=== PATIENT | female | born 2000 | race Two or more races ===

== ENCOUNTER 2024-11-27 02:03 | Inpatient (IN) | payer MEDICAID, SELFPAY ==
[2024-11-27] VITALS (13 sets, daily range): BP systolic 105–127; BP diastolic 75–88; PULSE 71–136; RESP 14–20; TEMP 36.1–37; O2SAT 96–100; BMI 17.5; BMI 17.4
--- NOTE | 2024-11-27 02:11 | PD.EDMEDCL ---
ED Medical Clearance RME/HPI General Chief complaint: Medical Clearance Stated complaint: MEDICAL CLEARANCE/HIGH GLUCOSE Time Seen by Provider: 11/27/24 02:28 Arrival date/time: 11/27/24 02:03 RME / HPI RME / HPI Narrative: See [facility] Related Information Allergies Allergy/AdvReac Type Severity Reaction Status Date / Time No Known Allergies Allergy Verified 02/27/20 11:18 Review of Systems Review of Systems Systems Reviewed: All systems reviewed, normal except as documented Past Medical History Past Medical History RESPIRATORY: Positive Asthma GASTROINTESTINAL: Positive Obstructive Bowel ENDOCRINE: Positive Diabetes Mellitus Type 1 Social History SMOKING STATUS: Current every day smoker ED Exam Narrative Physical exam: Refer to [facility] Course Course Course Narrative: See [facility] Quality Measures none Orders Category Date Time Status Bedside COVID-19 Antigen Test NOW Care 11/27/24 02:29 Active Bedside Influenza A&B Antigen Test NOW Care 11/27/24 02:29 Completed COVID-19 Screening Questionnaire NOW Care 11/27/24 04:26 Active Decision to Admit X1 Care 11/27/24 04:26 Completed EKG (ED ONLY) *Do not use* NOW Care 11/27/24 02:29 Completed Saline [Insert IV] NOW Care 11/27/24 02:29 Active Straight [In and Out Catheter] X1 Care 11/27/24 02:29 Active EKG (ED Only) Stat Exams 11/27/24 02:29 Draft ABG [Arterial Blood Gas] Stat Lab 11/27/24 03:03 Completed Alcohol, Blood Medical Stat Lab 11/27/24 02:35 Completed Amylase Stat Lab 11/27/24 02:35 Completed Beta Hydroxybutyrate Stat Lab 11/27/24 02:35 Completed Bilirubin,Direct Stat Lab 11/27/24 02:35 Completed CBC Stat Lab 11/27/24 02:35 Completed CMP [Comprehensive Metabolic Panel] Stat Lab 11/27/24 02:35 Completed Drug Screen,Urine Stat Lab 11/27/24 03:00 Completed Free T4 (Free Thyroxine) Stat Lab 11/27/24 02:35 Completed HCG,Qualitative Serum Stat Lab 11/27/24 02:35 Completed Hemoglobin A1C [Glycohemoglobin w (eAG)] Stat Lab 11/27/24 02:35 Completed Lactate (Lactic Acid) Stat Lab 11/27/24 02:35 Results Magnesium Stat Lab 11/27/24 02:35 Completed Procalcitonin Stat Lab 11/27/24 02:35 Completed TSH [Thyroid Stimulating Hormone] Stat Lab 11/27/24 02:35 Completed Troponin I Stat Lab 11/27/24 02:35 Completed UA, C/S IF [Urinalysis, C/S if Indicated] Stat Lab 11/27/24 03:00 Completed Urine Culture Stat Lab 11/27/24 03:00 Received Insulin Reg 100 Units/100 ml [Myxredlin] Med 11/27/24 03:48 Discontinued 100 unit in 100 ml IV 0.1 unit/kg/hr Insulin Regular Med 11/27/24 02:29 Discontinued 5 unit IV X1 ONE Ondansetron Inj [Zofran Inj] Med 11/27/24 02:29 Discontinued 4 mg IVP X1 ONE Sodium Chloride 0.9% 1000 ml [Ns] 1,000 ml Med 11/27/24 02:29 Discontinued IV 999 mls/hr Sodium Chloride 0.9% 1000 ml [Ns] 1,000 ml Med 11/27/24 03:45 Discontinued IV 999 mls/hr cefTRIAXone/D5w 1gm IV premix [Rocephin/D5w 1gm IV Med 11/27/24 03:45 Discontinued premix] 1 gm in 50 ml IV X1 Vital Signs Vital signs: Vital Signs Temperature 98.5 F 11/27/24 02:06 Pulse Rate 136 H 11/27/24 02:06 Respiratory Rate 20 11/27/24 02:06 Blood Pressure 127/86 H 11/27/24 02:06 Pulse Oximetry (%) 98 11/27/24 02:06 Oxygen Delivery Method Room Air 11/27/24 02:06 Medical Clearance MDM Narrative MDM Narrative:: Scribe Attestation: Shannan Mott am scribing for and in the presence of Dr. Rankin. Provider Notation: Although this document has been carefully reviewed, there may still be some phonetic and other typographical errors. These errors are purely grammatical due to imperfections in the software program and should not be construed in any way to compromise the substance of the patient's medical care during this visit. This section includes all my notes and documentations, including HPI, PE, and ED course. Fortino Rankin MD HPI: 24 y/o female with Hx of IDDM AND ASTHMA BIB PPD requesting medical clearance for fci due to elevated blood sugar of 479 mg/dL at [facility] x just [employer]. She began taking insulin at age 11 or 12 and has not had her insulin for a few days. Patient reports feeling shaky, thirsty, and N/V. Last BM was the day before yesterday. Reports malaise and fatigue. Patient does admit to alcohol consumption tonight. Denies any chance of . Denies any fever. No other complaints. ROS: All negative except as documented in HPI. Physical Exam: General: Alert and oriented. Appearance of malaise noted. Eyes: Conjunctivae and lids clear. ENT: No nasal congestion. Neck: Supple. Heart: Sinus tachycardia noted. Lungs: No respiratory distress. Good air movement. No rhonchi, wheezing, rales. Abdomen: Soft and nontender. Normal bowel sounds. No distension. No rebound or guarding. Back: No CVA tenderness. Skin: Warm and dry. Neuro: Alert and oriented X 3. I reviewed all diagnostic test results: My interpretation of the EKG is: Sinus tachycardia (112 bpm) with nonspecific ST-T changes. Blood tests remarkable for CO2 15.8, anion gap 18, Glu 537, LA 3.8, beta hydroxybutyrate 1.9. UA showed positive leukocyte Estrace, 16 RBC, 69 WBC, and bacteria. Covid/Influenza: Negative. At this point, diagnoses include: DKA, UTI Treatment here included: Zofran 4 mg, Insulin 5 units, IVF. Some improvement noted. I discussed the case with our ICU service about the presentation and exam and diagnostics and treatments here. And need of further care in the hospital. Recommended admission to hospitalist service. I discussed the case with our hospitalist. About the presentation and exam and diagnostics and treatments here. And need of further care in the hospital. Will accept the patient. Fortino Rankin MD Patient data External records reviewed:: [facility] previous records (No recent ED records available for review.) Clinical information provided by:: patient and law enforcement Social determinants that could affect healthcare access:: alcohol use Patient has the following chronic illnesses:: Type I DM How is presenting disease/condition affected by chronic disease/condition?: exacerbated by Evaluation data The following diagnostics were reviewed and interpreted by me:: lab results and EKG tracing(s) (My interpretation of the EKG is: Sinus tachycardia (112 bpm) with nonspecific ST-T changes. Fortino Rankin MD) Lab and/or radiology exams considered but not ordered:: None Interpretation Summary: I reviewed all diagnostic test results: My interpretation of the EKG is: Sinus tachycardia (112 bpm) with nonspecific ST-T changes. Blood tests remarkable for CO2 15.8, anion gap 18, Glu 537, LA 3.8, beta hydroxybutyrate 1.9. UA showed positive leukocyte Estrace, 16 RBC, 69 WBC, and bacteria. Covid/Influenza: Negative. Medications / Prescriptions Medications or Prescriptions considered but not ordered:: None Medication administrations:: Medication Administration History Acetaminophen (Acetaminophen 325 Mg Tablet) 650 mg PO Q6H PRN PRN Reason: Fever >100.4 or pain Stop: 12/27/24 04:57 Albuterol/Ipratropium (Albuterol/Ipratropium (Duoneb) Rt Emerald 3 Ml Nebu) 3 ml INH Q2HR PRN PRN Reason: SHORTNESS OF BREATH OR WHEEZE Stop: 12/27/24 04:57 Dextrose (Dextrose 50%-Water Inj 50 Ml Syringe) 25 ml IV Q15MIN PRN PRN Reason: BG 50-70 responsive npo pt Stop: 12/27/24 04:57 Dextrose (Dextrose 50%-Water Inj 50 Ml Syringe) 50 ml IV Q15MIN PRN PRN Reason: BG <50 OR BG <70 & pt unresponsive Stop: 12/27/24 04:57 Docusate Sodium (Docusate Sod 100 Mg Capsule) 100 mg PO QDAY PRN; Protocol PRN Reason: CONSTIPATION Stop: 12/27/24 04:57 Enoxaparin Sodium (Enoxaparin Sod Inj 40 Mg/0.4 Ml Syringe) 40 mg SC QDAY YARIEL Stop: 12/11/24 08:59 Glucagon (Glucagon Inj 1 Mg Vial) 1 mg IM Q15MIN PRN PRN Reason: BG <70, and no IV access Lactated Ringer's (Lactated Ringers) 1,000 mls @ 50 mls/hr IV .Q20H YARIEL Stop: 11/28/24 00:59 Ceftriaxone Sodium/Dextrose (Rocephin/D5w 1gm Iv Premix) 1 gm in 50 mls @ 100 mls/hr IV QDAY [facility] Stop: 12/04/24 05:01 Insulin Glargine (Insulin Glargine (Lantus) 5 Unit/0.05 Ml (Per 5 Units)) 10 unit SC QDAY YARIEL Stop: 12/27/24 08:59 Insulin Human Lispro (Insulin Lispro (Admelog) 1 Unit/0.01 Ml Unit) 0 unit SC AC [facility]; Protocol Stop: 12/27/24 07:29 Ondansetron HCl (Ondansetron Inj 2 Mg/Ml Inj 2 Ml) 4 mg IVP Q6H PRN; Protocol PRN Reason: NAUSEA OR VOMITING Stop: 12/27/24 04:57 Sennosides (Senna Tablet) 1 tab PO QDAY PRN; Protocol PRN Reason: constipation Stop: 12/27/24 04:57 Discontinued Medications Sodium Chloride (Ns) 1,000 mls @ 999 mls/hr IV .Q1H1M ONE Stop: 11/27/24 03:29 Last Infusion: 11/27/24 04:00 Dose: Infused Documented By: Admin: 11/27/24 02:52 Dose: 999 mls/hr Documented By: DT Ceftriaxone Sodium/Dextrose (Rocephin/D5w 1gm Iv Premix) 1 gm in 50 mls @ 100 mls/hr IV X1 ONE Stop: 11/27/24 04:14 Last Infusion: 11/27/24 04:24 Dose: Infused Documented By: Admin: 11/27/24 03:54 Dose: 100 mls/hr Documented By: CCT Sodium Chloride (Ns) 1,000 mls @ 999 mls/hr IV .Q1H1M ONE Stop: 11/27/24 04:45 Last Infusion: 11/27/24 04:57 Dose: Infused Documented By: Admin: 11/27/24 03:54 Dose: 999 mls/hr Documented By: CCT Insulin Human Regular (Myxredlin) 100 unit in 100 mls @ 4.627 mls/hr IV .[id number] PRN; Protocol PRN Reason: PER PROTOCOL Stop: 12/27/24 03:47 Insulin Human Regular (Insulin Hum Regular 1 Unit/0.01 Ml (Per Unit)) 5 unit IV X1 ONE Stop: 11/27/24 02:30 Last Admin: 11/27/24 02:52 Dose: 5 unit Documented By: EMILIANO Co-signed By: LALA Ondansetron HCl (Ondansetron Inj 2 Mg/Ml Inj 2 Ml) 4 mg IVP X1 ONE; Protocol Stop: 11/27/24 02:30 Last Admin: 11/27/24 02:51 Dose: 4 mg Documented By: EMILIANO Treatment here from me included: Zofran 4 mg, Insulin 5 units, IVF. Consultations Consultation(s) initiated? (list below): Yes Consultation #1 (Physician, Specialty, Details): I discussed the case with our ICU service about the presentation and exam and diagnostics and treatments here. And need of further care in the hospital. Recommended admission to hospitalist service. I discussed the case with our hospitalist. About the presentation and exam and diagnostics and treatments here. And need of further care in the hospital. Will accept the patient. Diagnosis Medical Clearance Differential Diagnosis: other (hyperosmolar hyperglycemic state (HHS), alcoholic ketoacidosis (AKA), lactic acidosis, and starvation ketosis. ) Most likely diagnosis given after review of the tests above:: DKA, UTI Admission Indicated Admission indicated?: indicated Explain why admission is indicated or not indicated:: DKA Admission Request Was there a request for admission?: Yes Admission Attestation Admission request attestation: Discussed case with Hospitalist service regarding admission. Discussed patients ED course, exam findings, labs, and radiology results. The Hospitalist [agrees] to accept the patient for admission. Disposition Plan Disposition Plan: Admit Discharge Plan Plan Patient Disposition: Admit Acute Care w/in Hospital Problem List Clinical Impression: DKA (diabetic ketoacidosis), UTI (urinary tract infection)
--- NOTE | 2024-11-27 02:29 | EKG_ITS ---
[facility] Test Date: 2024-11-27 Pat Name: BRYCE GOSS Department: Room: - Gender: Female Time Clock Repairer: : 2000 Requested By: Fortino Rayo Order Number: [id number] Reading MD: Fortino Rayo Measurements Intervals [place] Rate: 112 P: 57 TX: 130 QRS: 56 QRSD: 75 T: 21 QT: 339 QTc: 464 Interpretive Statements SINUS TACHYCARDIA LOW QRS VOLTAGE IN PRECORDIAL LEADS [QRS DEFLECTION < 1.0 mV IN CHEST LEADS] NONSPECIFIC T-WAVE ABNORMALITY ABNORMAL RHYTHM ECG No previous ECG available for comparison /store/S0/[id number]/ecg/[id number].pdf
[2024-11-27] MEDS: ONDANSETRON INJ 2 MG/ML INJ 2 ML 4 MG IVP (02:51)
[2024-11-27] MEDS: SODIUM CHLORIDE 0.9% 1000 ML 1,000 ML 999 ML IV ×2 (02:52→03:54)
[2024-11-27] MEDS: INSULIN HUM REGULAR 1 UNIT/0.01 ML (PER UNIT) 5 UNIT IV (02:52)
[2024-11-27 02:55] LABS: Lactate (Lactic Acid) 3.8 mMol/L (0.4-2.0)
[2024-11-27 02:56] LABS: Basophils # (Auto) 0.0 Thou/mm3 (0.0-0.2); Basophils % (Auto) 0 % (0-2.5); Eosinophils # (Auto) 0.1 Thou/mm3 (0.0-0.5); Eosinophils % (Auto) 2 % (0-10); Hematocrit 38.3 % (36.0-46.0); Hemoglobin 11.9 g/dL (12.0-16.0); Immature Granulocytes Auto 0.01 Thou/mm3 (0.00-0.00); Lymphocytes # (Auto) 1.0 Thou/mm3 (1.0-4.8); Lymphocytes % (Auto) 15 % (10-50); Mean Corpuscular HGB Conc 31.1 g/dl (31.0-37.0); Mean Corpuscular Hemoglobin 24.3 pg (25.0-35.0); Mean Corpuscular Volume 78 fL (80-100); Monocytes # (Auto) 0.6 Thou/mm3 (0.0-0.8); Monocytes % (Auto) 8 % (0-12); Neutrophils # (Auto) 5.0 Thou/mm3 (1.8-7.7); Neutrophils % (Auto) 75 % (37-80); Nucleated Red Blood Cell # 0.00 Thou/mm3 (0.00-0.00); Nucleated Red Blood Cell % 0 /100 WBC (0); Platelet Count 574 Thou/mm3 (140-440); RDW Standard Deviation 44.4 fL (36.4-46.3); Red Blood Count 4.90 Miln/mm3 (4.00-5.20); White Blood Count 6.7 Thou/mm3 (3.6-11.0)
[2024-11-27 02:59] LABS: Beta Hydroxybutyrate 1.9 mmol/L (<0.6)
[2024-11-27 03:06] LABS: Base Excess -6 (-3-3); HCO3 16 mEq/L (20-26); Inspired Oxygen, FIO2 21 %; O2 Saturation 99 % (91-98); PCO2 21 mmHg (32.0-48.0); PO2 142 mmHg (83-108); pH, Arterial 7.47 (7.35-7.45)
[2024-11-27 03:08] LABS: Allen Test Performed/OK; Puncture Site Right Radial
[2024-11-27 03:17] LABS: Collection Type, Urine Clean Catch
[2024-11-27 03:18] LABS: Glucose Estimated Average 355 mg/dL (80-131); Hemoglobin A1C > 14.0 % Hgb (4.8-6.0)
[2024-11-27 03:30] LABS: Bacteria,Urine Rare; Bilirubin,Urine Negative (Negative); Blood,Urine Trace (Negative); Clarity,Urine Clear (Clear/Hazy); Color,Urine Lt-Yellow (Lt Yel-Yel); Glucose, Urine 4+ (Negative); Ketones,Urine 2+ (Negative); Leukocyte Esterase,Urine Positive (Negative); Nitrite,Urine Negative (Negative); PH,Urine 5.5 (5.0-7.0); Protein,Urine Negative (Neg - Trace); RBC,Urine 16 /hpf (0-3); Specific Gravity,Urine 1.040 (1.001-1.035); Squamous Epithelial Cell,Urine 9 /hpf (0-5); Urobilinogen,Urine Negative mg/dL (0.0-1.0); WBC,Urine 69 /hpf (0-5)
[2024-11-27 03:31] LABS: HCG,Qualitative Serum Negative
[2024-11-27 03:34] LABS: Culture Indicated,Urine Yes
[2024-11-27 03:40] LABS: Alanine Aminotransferase 29 U/L (10-49); Albumin, Serum 4.4 gm/dL (3.5-5.0); Albumin/Globulin Ratio 1.6 (1.2-2.2); Alcohol, Blood Medical 23.4 mg/dL (0-10.0); Alkaline Phosphatase 210 U/L (46-116); Amylase 57 U/L (30-118); Anion Gap 18 (7-16); Aspartate Amino Transferase 23 U/L (0-34); BUN/Creatinine Ratio 9 Ratio (12-20); Bilirubin,Direct < 0.1 mg/dL (0.0-0.3); Bilirubin,Total 0.2 mg/dL (0.3-1.2); Blood Urea Nitrogen 7 mg/dL (9-23); Calcium 8.9 mg/dL (8.3-10.6); Calcium (Corrected) 8.9 mg/dL (8.5-10.1); Carbon Dioxide 15.8 mMol/L (20.0-31.0); Chloride 102 mMol/L (98-107); Creatinine (Component) 0.8 mg/dL (0.6-1.3); Estimated Creatinine Clearance 80.6 mL/min (>60); Free T4 (Free Thyroxine) 0.96 ng/dL (0.89-1.76); Globulin 2.8 gm/dL (2.3-3.5); Magnesium 1.9 mg/dL (1.6-2.6); Potassium 4.0 mMol/L (3.4-5.1); Sodium 136 mMol/L (136-145); Thyroid Stimulating Hormone 1.13 uIU/mL (0.55-4.78); Total Protein 7.2 gm/dL (5.7-8.2); Troponin I < 0.002 ng/mL (0.0-0.045); eGFR > 60 See Note
[2024-11-27 03:44] LABS: Procalcitonin 0.08 ng/ml (0.0-0.49)
[2024-11-27 03:46] LABS: Osmolality,Calculated 293 (275-295)
[2024-11-27 03:47] LABS: Glucose 537 mg/dL (74-106)
[2024-11-27] MEDS: cefTRIAXone/D5w 1gm IV premix 1 GM/50 ML BAG IV ×2 (03:54→20:40)
[2024-11-27 04:07] LABS: Amphetamine/Methamp Scrn,U Positive (Negative); Barbiturate Screen,Urine Negative (Negative); Benzodiazepines Screen,Urine Negative (Negative); Benzoylecgonine Screen, Ur Negative (Negative); Fentanyl Screen,Urine Negative (Negative); Opiate Screen,Urine Negative (Negative); THC Screen,Urine Positive (Negative)
--- NOTE | 2024-11-27 05:03 | PD.RESHP ---
Documentation for date of: 11/27/24 HPI History of Present Illness Chief complaint: Elevated glucose History of present illness: 24-year-old female with PMHx significant for poorly controlled insulin-dependent diabetes, asthma presents ED after being arrested for DUI, after having been found to have significantly elevated blood glucose in the field. On presentation patient blood glucose 537 decreased to 330 with 5 units of insulin and 2 L bolus normal saline. Patient denies fever, chills, chest pain, shortness of breath, however endorses nausea and mild dysuria. Per patient she had some sort of genital lesions for which she was prescribed antibiotics 1 month ago, however she did not complete the course. Patient was reported to have been anxious since she was arrested and was breathing rapidly. ED COURSE: Labs significant for: WBC 6.7, bicarb 15.8, anion gap 18. ABG showed pH 7.47, PCO2 21. Hemoglobin A1c 14%. Lactic acid 3.8, BHB 1.9, Pro-Phi negative. UA showed 69 WBCs, rare bacteria, 4+ glucose, 2+ ketones. U tox positive for meth, marijuana, ethyl alcohol level 23.4. Headache significant for: EKG showing sinus tachycardia. Patient presented with tachycardia 136, improved to 102 with fluids. Patient received 2 L bolus normal saline, 5 units insulin, 1 g Rocephin in the ED. PMH:-dependent diabetes, asthma PSH: 2 C-sections SH: Patient endorses history of drug use but refuses to specify which drugs. Endorses alcohol use but does not specify amounts. Reports using vape for past 2 to 3 years, denies other tobacco use. Allergies:?NKDA Medications: Lantus, Humalog SSI, albuterol as needed Review of Systems Review of Systems Systems Reviewed: All systems reviewed, normal except as documented Past Medical History Past Medical History Comments PMH COMMENT: PMH:-dependent diabetes, asthma PSH: 2 C-sections SH: Patient endorses history of drug use but refuses to specify which drugs. Endorses alcohol use but does not specify amounts. Reports using vape for past 2 to 3 years, denies other tobacco use. Allergies:?NKDA Medications: Lantus, Humalog SSI, albuterol as needed Exam Vital Signs Temp Pulse Resp BP Pulse Ox O2 Del Method 98.6 F 121 H 14 120/88 H 99 Room Air 11/27/24 02:19 11/27/24 02:19 11/27/24 02:19 11/27/24 02:19 11/27/24 02:19 11/27/24 02:19 Narrative Exam PE: Gen: Thin, appears malnourished. HEENT: NCAT, PERRLA, EOMI, anicteric conjunctivae. Dry mucous membranes. CVS: normal S1 and S2. No M/R/G. Sinus tachycardia Resp: CTA B/L. No rhonchi, rales, crackles or wheezing. Abd: soft, non-distended. BS+ in all 4 quadrants. Suprapubic tenderness. MSK: Good ROM in BUE & BLE. No edema or rash. Neuro: CN II-XII grossly intact. Strength 5/5 in BUE & BLE. Alert and oriented x3. Psych: appropriate mood and affect. Results: Labs 11/27/24 02:35 11/27/24 10:20 Labs: Short CBC 11/27/24 Range/Units 02:35 WBC 6.7 (3.6-11.0) Thou/mm3 Hgb 11.9 L (12.0-16.0) g/dL Hct 38.3 (36.0-46.0) % Plt Count 574 H (140-440) Thou/mm3 BMP 11/27/24 02:35 Sodium 136 Potassium 4.0 Chloride 102 Carbon Dioxide 15.8 L BUN 7 L Creatinine 0.8 Glucose 537 H* Calcium 8.9 Cardiac Enzymes 11/27/24 Range/Units 02:35 Troponin I < 0.002 (0.0-0.045) ng/mL Liver Function 11/27/24 Range/Units 02:35 Total Bilirubin 0.2 L (0.3-1.2) mg/dL Direct Bilirubin < 0.1 (0.0-0.3) mg/dL AST 23 (0-34) U/L ALT 29 (10-49) U/L Alkaline Phosphatase 210 H (46-116) U/L Albumin 4.4 (3.5-5.0) gm/dL Urine 11/27/24 Range/Units 03:00 Urine Color Lt-Yellow (Lt Yel-Yel) Urine Clarity Clear (Clear/Hazy) Urine pH 5.5 (5.0-7.0) Ur Specific [place] 1.040 H (1.001-1.035) Urine Protein Negative (Neg - Trace) Urine Glucose (UA) 4+ A (Negative) ABG Interpretation ABG results: 11/27/24 03:03 ABG pH 7.47 H ABG pCO2 21 L ABG pO2 142 H ABG HCO3 16 L ABG O2 Saturation 99 H ABG Base Excess -6 L Quality Measures Quality Measures VTE prophylaxis Medications Home Medications and Allergies Home Medications ?Medication ?Instructions ?Recorded ?Confirmed ?Type insulin glargine U-300 conc 300 14 unit subcut Q24H 11/27/24 11/27/24 History unit/mL (3 mL) subcutaneous pen (Toujeo Max U-300 SoloStar) insulin lispro 100 unit/mL 5 unit subcut .COMPLEX 11/27/24 11/27/24 History subcutaneous pen Allergies Allergy/AdvReac Type Severity Reaction Status Date / Time No Known Allergies Allergy Verified 02/27/20 11:18 Visit Medications Discontinued Medications Sodium Chloride (Ns) 1,000 mls @ 999 mls/hr IV .Q1H1M ONE Stop: 11/27/24 03:29 Last Infusion: 11/27/24 04:00 Dose: Infused Ceftriaxone Sodium/Dextrose (Rocephin/D5w 1gm Iv Premix) 1 gm in 50 mls @ 100 mls/hr IV X1 ONE Stop: 11/27/24 04:14 Last Infusion: 11/27/24 04:24 Dose: Infused Sodium Chloride (Ns) 1,000 mls @ 999 mls/hr IV .Q1H1M ONE Stop: 11/27/24 04:45 Last Infusion: 11/27/24 04:57 Dose: Infused Insulin Human Regular (Myxredlin) 100 unit in 100 mls @ 4.627 mls/hr IV .[id number] PRN; Protocol PRN Reason: PER PROTOCOL Stop: 12/27/24 03:47 Insulin Human Regular (Insulin Hum Regular 1 Unit/0.01 Ml (Per Unit)) 5 unit IV X1 ONE Stop: 11/27/24 02:30 Last Admin: 11/27/24 02:52 Dose: 5 unit Ondansetron HCl (Ondansetron Inj 2 Mg/Ml Inj 2 Ml) 4 mg IVP X1 ONE; Protocol Stop: 11/27/24 02:30 Last Admin: 11/27/24 02:51 Dose: 4 mg Assessment & Plan Plan 24-year-old female with PMHx significant for poorly controlled insulin-dependent diabetes, asthma presents ED after being arrested for DUI, after having been found to have significantly elevated blood glucose in the field, admitted for mild DKA, respiratory alkalosis, and UTI. Patient was initially being admitted to ICU but as her clinic was improving quickly patient will be admitted to floor. #High anion gap metabolic acidosis likely secondary to #Lactic acidosis secondary to #DKA #Overcompensated respiratory alkalosis 2/2 anxiety #UTI, nonseptic #STD? Patient presents with high anion gap metabolic acidosis, AG 18, serum bicarb 15.8, well compensated with ABG showing pH 7.47, PCO2 21. Initially considered DKA, ICU was consulted, determined patient was not in DKA and did not need ICU admission. Lactic acid 3.8. UA showed 16 WBC, bacteria. Culture pending. Patient received 2 L bolus normal saline and 1 g Rocephin in the ED. Patient denies drug use or ASA overdose. She was reported to be very anxious when she was arrested. - Follow-up urine cultures - Follow up HIV and Syphilis serology - Trend lactate - Rocephin 1 g IV daily (started 11/27) - IVF: LR at 75 mL/h x 1 L - F/U VBG - Renal panel Q4h #Poorly controlled insulin-dependent diabetes #Hyperglycemia Patient has history of diabetes, for which she takes Lantus 14 daily and Humalog SSI, patient reports not seeing a PCP for close management. Hemoglobin A1c greater than 14% as of 11/27/24. Blood glucose on admission was 537, down trended to 330 with 5 units insulin IVP. - ISS - Lantus 10 units SQ daily - Blood sugar checks ACHS - Carb consistent diet - Recommend establishing outpatient follow-up for closer management of DM #Malnutrition Patient appears underweight and emaciated on exam, BMI 17.5. Protein levels appropriate, serum total protein 7.2, albumin 4.4. - Dietary consulted #Polysubstance abuse Patient reports history of drug and alcohol use, although refuses to provide specifics. U tox positive for methamphetamines and weed, alcohol 23.4. Patient brought in after being arrested for DUI. -Provide counseling -Social service referral DVT prophylaxis: Lovenox GI prophylaxis: None Diet: Carb consistent Lines: Peripheral IV Code status: Full code Plan of care discussed with attending Dr. Chowdhury. Campos Dial MD PGY?2 Attending Provider Attestation/Addendum Attending Provider Attestation/Addendum After examination of the patient and review of the clinical data I feel that this patient needs admission to the hospital for further treatment/evaluation. I Anya Chowdhury MD, attest that I was physically present for martinez portions of evaluation, and examined patient, labs and imagings and plan of care were discussed with IM residents team, and I agree with the findings and plans documented above.
[2024-11-27] MEDS: RINGERS LACTATED 1000 ML 1,000 ML 50 ML IV (05:14)
[2024-11-27 05:53] LABS: Reflex Lactate? Y
[2024-11-27] MEDS: RINGERS LACTATED 1000 ML 1,000 ML 75 ML IV (06:14)
[2024-11-27] MEDS: INSULIN GLARGINE (Lantus) 5 UNIT/0.05 ML (PER 5 UNITS) 10 UNIT SC (06:15)
[2024-11-27 06:39] LABS: Lactic Acid, 3 HR 0.9 mMol/L (0.4-2.0)
[2024-11-27 06:39] LABS: Base Excess, Venous -3 (-3-3); O2 Saturation, Venous 100 % (96-97); PCO2, Venous 35 mmHg (36-56); PO2, Venous 149 mmHg (15-58); pH, Venous 7.40 (7.33-7.66)
[2024-11-27] MEDS: INSULIN LISPRO (AdmeLOG) 1 UNIT/0.01 ML UNIT SC ×3 (07:43→17:19)
[2024-11-27 07:50] LABS: Albumin, Serum 3.5 gm/dL (3.5-5.0); Anion Gap 11 (7-16); BUN/Creatinine Ratio 10 Ratio (12-20); Blood Urea Nitrogen 6 mg/dL (9-23); Calcium 7.6 mg/dL (8.3-10.6); Calcium (Corrected) 8.0 mg/dL (8.5-10.1); Carbon Dioxide 22.5 mMol/L (20.0-31.0); Chloride 108 mMol/L (98-107); Creatinine (Component) 0.6 mg/dL (0.6-1.3); Estimated Creatinine Clearance 107.4 mL/min (>60); Glucose 337 mg/dL (74-106); Osmolality,Calculated 291 (275-295); Phosphorous 3.3 mg/dL (2.4-5.1); Potassium 4.0 mMol/L (3.4-5.1); Sodium 141 mMol/L (136-145); eGFR > 60 See Note
--- NOTE | 2024-11-27 07:58 | ESPR_ITS ---
<Statement entered by Fadia Triana MD - 11/27/24 16:38> Patient was seen and examined at bedside, agree with assessment and plan in this note. - Patient's plan and care discussed with my attending, Dr. Nay Triana MD Internal Medicine PGY-3 Documentation for date of: 11/27/24 Subjective Subjective Interval history: Patient was evaluated bedside, appears fatigued. Patient states she is tired with a 5/10 headache. She feels nauseas but is not throwing up or having diarrhea currently, but reports diarrhea the last few days. Per nurse, she had loose stools today. She is gassy. When asked about genital lesions she states that they are tiny and basically resolved now, last sexual activity was two ago (one night stand). She reports not finishing her antibiotics the last month. She denies having chest pain, sob, fevers, or night sweats. She confirms that she is ok with us giving her insulin in the hospital. Exam Vital Signs Temp Pulse Resp BP Pulse Ox O2 Del Method 98.6 F 95 14 118/80 99 Room Air 11/27/24 06:02 11/27/24 06:02 11/27/24 06:02 11/27/24 06:02 11/27/24 06:02 11/27/24 06:02 Narrative Exam PE: Gen: Thin, appears malnourished. HEENT: NCAT, PERRLA, EOMI, anicteric conjunctivae. Moist mucous membranes. CVS: normal S1 and S2. No M/R/G. Sinus tachycardia Resp: CTA B/L. No rhonchi, rales, crackles or wheezing. Abd: soft, non-distended. BS+ in all 4 quadrants. Suprapubic tenderness. Negative Barba sign. No rebound tension or guarding. MSK: Good ROM in BUE & BLE. No edema or rash. Neuro: CN II-XII grossly intact. Strength 5/5 in BUE & BLE. Alert and oriented x3. : 2 firm nonerythematous but tender bumps over mons pubis, dry, not weeping. No involvement of labia Psych: appropriate mood and affect. Objective Labs 11/27/24 02:35 11/27/24 10:20 Labs: Laboratory Results - last 24 hr 11/27/24 11/27/24 11/27/24 02:35 03:00 03:03 WBC 6.7 RBC 4.90 Hgb 11.9 L Hct 38.3 MCV 78 L MCH 24.3 L MCHC 31.1 RDW Std Deviation 44.4 Plt Count 574 H Neut % (Auto) 75 Lymph % (Auto) 15 Clarke % (Auto) 8 Eos % (Auto) 2 Baso % (Auto) 0 Neut # (Auto) 5.0 Lymph # (Auto) 1.0 Clarke # (Auto) 0.6 Eos # (Auto) 0.1 Baso # (Auto) 0.0 Immature Gran # (Auto) 0.01 H Absolute Nucleated RBC 0.00 Immature Gran % 0 Nucleated RBC % 0 Puncture Site Right Radial ABG pH 7.47 H ABG pCO2 21 L ABG pO2 142 H ABG HCO3 16 L ABG O2 Saturation 99 H ABG Base Excess -6 L VBG pH VBG pCO2 VBG pO2 VBG O2 Sat (Delma) VBG Base Excess FiO2 21 Sodium 136 Potassium 4.0 Chloride 102 Carbon Dioxide 15.8 L Anion Gap 18 H BUN 7 L Creatinine 0.8 Estim Creat Clear Calc 80.6 eGFR > 60 BUN/Creatinine Ratio 9 L Glucose 537 H* Estimated Ave Glu mg/dL 355 H Hemoglobin A1c > 14.0 H Calculated Osmolality 293 Lactic Acid 3.8 H Calcium 8.9 Corrected Calcium 8.9 Phosphorus Magnesium 1.9 Total Bilirubin 0.2 L Direct Bilirubin < 0.1 AST 23 ALT 29 Alkaline Phosphatase 210 H Troponin I < 0.002 Total Protein 7.2 Albumin 4.4 Globulin 2.8 Albumin/Globulin Ratio 1.6 Amylase 57 Beta-Hydroxybutyrate/Acetoacetate 1.9 H Procalcitonin 0.08 TSH 1.13 Free T4 0.96 HCG, Qual Negative Ur Collection Type Clean Catch Urine Color Lt-Yellow Urine Clarity Clear Urine pH 5.5 Ur Specific [place] 1.040 H Urine Protein Negative Urine Glucose (UA) 4+ A Urine Ketones 2+ A Urine Blood Trace Urine Nitrite Negative Urine Bilirubin Negative Urine Urobilinogen (Auto) Negative Ur Leukocyte Esterase Positive Urine RBC 16 H Urine WBC 69 H Ur Squamous Epith Cells 9 H Urine Bacteria Rare Ur Culture Indicated? Yes Urine Opiates Screen Negative Urine Fentanyl Screen Negative Ur Barbiturates Screen Negative U Amphetamin/Meth Scrn Positive A U Benzodiazepines Scrn Negative U Cocaine Metab Screen Negative U Marijuana (THC) Screen Positive A Ethyl Alcohol 23.4 H 11/27/24 11/27/24 11/27/24 05:53 06:25 07:31 WBC RBC Hgb Hct MCV MCH MCHC RDW Std Deviation Plt Count Neut % (Auto) Lymph % (Auto) Clarke % (Auto) Eos % (Auto) Baso % (Auto) Neut # (Auto) Lymph # (Auto) Clarke # (Auto) Eos # (Auto) Baso # (Auto) Immature Gran # (Auto) Absolute Nucleated RBC Immature Gran % Nucleated RBC % Puncture Site ABG pH ABG pCO2 ABG pO2 ABG HCO3 ABG O2 Saturation ABG Base Excess VBG pH 7.40 VBG pCO2 35 L VBG pO2 149 H VBG O2 Sat (Delma) 100 H VBG Base Excess -3 FiO2 Sodium 141 Potassium 4.0 Chloride 108 H Carbon Dioxide 22.5 Anion Gap 11 BUN 6 L Creatinine 0.6 Estim Creat Clear Calc 107.4 eGFR > 60 BUN/Creatinine Ratio 10 L Glucose [address] Glu mg/dL Hemoglobin A1c Calculated Osmolality 291 Lactic Acid 0.9 Calcium 7.6 L Corrected Calcium 8.0 L Phosphorus 3.3 Magnesium Total Bilirubin Direct Bilirubin AST ALT Alkaline Phosphatase Troponin I Total Protein Albumin 3.5 D Globulin Albumin/Globulin Ratio Amylase Beta-Hydroxybutyrate/Acetoacetate Procalcitonin TSH Free T4 HCG, Qual Ur Collection Type Urine Color Urine Clarity Urine pH Ur Specific [place] Urine Protein Urine Glucose (UA) Urine Ketones Urine Blood Urine Nitrite Urine Bilirubin Urine Urobilinogen (Auto) Ur Leukocyte Esterase Urine RBC Urine WBC Ur Squamous Epith Cells Urine Bacteria Ur Culture Indicated? Urine Opiates Screen Urine Fentanyl Screen Ur Barbiturates Screen U Amphetamin/Meth Scrn U Benzodiazepines Scrn U Cocaine Metab Screen U Marijuana (THC) Screen Ethyl Alcohol ABG Interpretation ABG results: 11/27/24 11/27/24 03:03 06:25 ABG pH 7.47 H ABG pCO2 21 L ABG pO2 142 H ABG HCO3 16 L ABG O2 Saturation 99 H ABG Base Excess -6 L VBG pH 7.40 VBG pCO2 35 L VBG pO2 149 H VBG Base Excess -3 Quality Measures Quality Measures VTE prophylaxis Assessment & Plan Assessment Current Active Medications: Generic Name Dose Route Start Last Admin Trade Name Freq PRN Reason Stop Dose Admin Acetaminophen 650 mg 11/27/24 04:58 Acetaminophen 325 Mg Tablet PO 12/27/24 04:57 Q6H PRN Fever >100.4 or pain Albuterol/Ipratropium 3 ml 11/27/24 04:58 Albuterol/Ipratropium (Duoneb) Rt Emerald 3 Ml Nebu INH 12/27/24 04:57 Q2HR PRN SHORTNESS OF BREATH OR WHEEZE Dextrose 25 ml 11/27/24 04:58 Dextrose 50%-Water Inj 50 Ml Syringe IV 12/27/24 04:57 Q15MIN PRN BG 50-70 responsive npo pt Dextrose 50 ml 11/27/24 04:58 Dextrose 50%-Water Inj 50 Ml Syringe IV 12/27/24 04:57 Q15MIN PRN BG <50 OR BG <70 & pt unresponsive Docusate Sodium 100 mg 11/27/24 04:58 Docusate Sod 100 Mg Capsule PO 12/27/24 04:57 QDAY PRN CONSTIPATION Protocol Enoxaparin Sodium 40 mg 11/27/24 09:00 Enoxaparin Sod Inj 40 Mg/0.4 Ml Syringe SC 12/11/24 08:59 QDAY YARIEL Glucagon 1 mg 11/27/24 04:58 Glucagon Inj 1 Mg Vial IM Q15MIN PRN BG <70, and no IV access Ceftriaxone Sodium/Dextrose 1 gm in 50 mls @ 100 mls/hr 11/27/24 21:00 Rocephin/D5w 1gm Iv Premix IV 12/04/24 20:59 2100 YARIEL Lactated Ringer's 1,000 mls @ 75 mls/hr 11/27/24 05:51 11/27/24 06:14 Lactated Ringers IV 11/27/24 19:10 75 mls/hr .[id number] YARIEL Administration Insulin Glargine 10 unit 11/27/24 21:00 Insulin Glargine (Lantus) 5 Unit/0.05 Ml (Per 5 Units) SC 12/27/24 20:59 QPM YARIEL Insulin Human Lispro 0 unit 11/27/24 07:30 11/27/24 07:43 Insulin Lispro (Admelog) 1 Unit/0.01 Ml Unit SC 12/27/24 07:29 5 unit AC YARIEL Administration Protocol Ondansetron HCl 4 mg 11/27/24 04:58 Ondansetron Inj 2 Mg/Ml Inj 2 Ml IVP 12/27/24 04:57 Q6H PRN NAUSEA OR VOMITING Protocol Sennosides 1 tab 11/27/24 04:58 Senna Tablet PO 12/27/24 04:57 QDAY PRN constipation Protocol Plan Plan 24-year-old female with PMHx significant for poorly controlled insulin-dependent diabetes, asthma presents ED after being arrested for DUI, after having been found to have significantly elevated blood glucose in the field, admitted for mild DKA, respiratory alkalosis, and UTI. #DKA resolved #Overcompensated respiratory alkalosis 2/2 anxiety #UTI, nonseptic Patient presents with high anion gap metabolic acidosis, AG 18, serum bicarb 15.8, well compensated with ABG showing pH 7.47, PCO2 21. Initially considered DKA, ICU was consulted, determined patient was not in DKA and did not need ICU admission. Lactic acid 3.8. UA showed 16 WBC, bacteria. Culture pending. Patient received 2 L bolus normal saline and 1 g Rocephin in the ED. Patient denies drug use or ASA overdose. She was reported to be very anxious when she was arrested. - Follow-up urine cultures - Not resulted as of 11/27 - Trend lactate: 0.9 on 11/27 - Rocephin 1 g IV daily (started 11/27) - IVF: LR at 75 mL/h x 1 L - VB.39, PCO2: 40, PO2: 41, VBG O2: 76, VBG base: -1 - Renal panel Q4h #Poorly controlled insulin-dependent diabetes #Hyperglycemia Patient has history of diabetes, for which she takes Lantus 14 daily and Humalog SSI, patient reports not seeing a PCP for close management. Hemoglobin A1c greater than 14% as of 11/27/24. Blood glucose on admission was 537, down trended to 330 with 5 units insulin IVP. - ISS - Lantus 10 units SQ daily - Blood sugar checks ACHS - Carb consistent diet - Recommend establishing outpatient follow-up for closer management of DM #Diarrhea Acute #C.DIff r/o Patient has history of diarrhea without blood or mucous, abdominal discomfort, nausua, Recent antibiotics use for genital ulcers? Plan: -stool culture and sensitivity, stool wbc, pcr c. diff -contact precautions -monitor I/Os, replete fluids as needed #Cholecystitis vs Cholelithiasis vs gastroenteritis ALP is 210, but Barba sign negative. Patient does not appear jaundiced. Most likely gastroenteritis, patient has gastric pain and nausea. Plan: Consider abdominal ultrasound if symptoms worsening or jaundice appears. #Incomplete ABx administration for STD #Folliculitis vs STI Patient states the sores have resolved. Last sex activity was two months ago, patient did not finish her antibiotics. Per physical exam, two small lesions noted, no involvement of labias majora or minora. Dry, non weeping. Most likely folliculitis from shaving. Denies recent sexual activity Plan: Bactrim (TMP/SMX) FUP Chlamydia/GC/TV Syohillis HIV 1&2 AB screen #Malnutrition Patient appears underweight and emaciated on exam, BMI 17.5. Protein levels appropriate, serum total protein 7.2, albumin 4.4. - Dietary consulted #Polysubstance abuse Patient reports history of drug and alcohol use, although refuses to provide specifics. U tox positive for methamphetamines and weed, alcohol 23.4. Patient brought in after being arrested for DUI. -Provide counseling -Social service referral -Initiate CIWA protocol DVT prophylaxis: Lovenox GI prophylaxis: None Diet: Carb consistent Lines: Peripheral IV Code status: Full code Plan of care discussed with attending Dr. Tee and resident supervisor decorating Dr. Fadia Triana. Mart Troy MD PGY?1 Attending Provider Attestation/Addendum Esthela Mott, DO, attest that I was physically present for the martinez portions of the service and evaluated the patient with the resident and I reviewed and discussed the case with the resident and agree with the resident's findings and plans of care as documented above Patient seen and evaluated this a.m. Patient states that she has type 1 diabetes and takes 14 units of Lantus every night with 10 to 12 units of short acting insulin before meals. Patient last had DKA about 3 months ago during which she was hospitalized for SBO. Patient states that she had missed her Lantus dose the night before. She has been drinking heavily every other day including beers and shots of hard liquor. She denies any previous episodes of alcohol withdrawal. However, she states that she has always had trouble controlling her blood sugars. DKA has since resolved and patient has been started on Lantus 15 units with 10 units of lispro before meals. A1c is greater than 14. Patient states that she follows up with [facility], but has been running out of insulin lately and has not been very compliant with her medications. Will provide patient with a sample of CGM as she does have a iPhone to help control blood sugars. She also reports that she was recently on antibiotics due to genital lesions that she had. Patient states that she has had only 1 partner in the past 2 months. She denies history of STIs. Patient had 1 small firm, but tender nodule over her left mons pubis region on as well as a tender nodule at the base of her left labia. Patient states that initially when it started, it was very tender to palpation and sometimes would burn, but was or not ulcerated. She states that he had some purulent drainage with blood. Suspect that patient has folliculitis as she does shave the region often. Patient states that she did not complete her antibiotic regimen. Will restart Bactrim as she continues to still have some pain in the affected region. Will also check for any STDs. Will continue to uptitrate insulin as needed and monitor patient for any signs of alcohol withdrawal.
--- NOTE | 2024-11-27 09:15 | PC.NURSE ---
Pt. arrived to floor via gurney with Curt Saenz from ER, awake, alert, oriented x4, resp. even and unlabored, S1S2 audible, abd. soft non tender to touch, moves all extremities well. Room orientation with pt., hat in toilet, pt. verbalized understanding of the need to measure urine output. Bed in low position and locked, call light within reach, placed on Tele Box #[id number], will cont. to monitor.
[2024-11-27 10:41] LABS: Base Excess, Venous -1 (-3-3); O2 Saturation, Venous 76 % (96-97); PCO2, Venous 40 mmHg (36-56); PO2, Venous 41 mmHg (15-58); pH, Venous 7.39 (7.33-7.66)
[2024-11-27 11:01] LABS: Albumin, Serum 3.5 gm/dL (3.5-5.0); Anion Gap 9 (7-16); BUN/Creatinine Ratio 14 Ratio (12-20); Blood Urea Nitrogen 7 mg/dL (9-23); Calcium 8.2 mg/dL (8.3-10.6); Calcium (Corrected) 8.6 mg/dL (8.5-10.1); Carbon Dioxide 23.1 mMol/L (20.0-31.0); Chloride 108 mMol/L (98-107); Creatinine (Component) 0.5 mg/dL (0.6-1.3); Estimated Creatinine Clearance 128.9 mL/min (>60); Glucose 175 mg/dL (74-106); Osmolality,Calculated 281 (275-295); Phosphorous 2.9 mg/dL (2.4-5.1); Potassium 4.0 mMol/L (3.4-5.1); Sodium 140 mMol/L (136-145); eGFR > 60 See Note
[2024-11-27] MEDS: INSULIN LISPRO (AdmeLOG) 1 UNIT/0.01 ML UNIT 5 UNIT SC ×2 (11:58→17:18)
[2024-11-27] MEDS: THIAMINE INJ 100 MG/ML VIAL 2 ML IVP (13:11)
[2024-11-27] MEDS: FOLIC ACID 1 MG TABLET PO (13:11)
[2024-11-27 13:45] LABS: Syphilis Nonreactive (Nonreactive)
--- NOTE | 2024-11-27 13:47 | PC.NURSE ---
Dr Tee in to see pt., will await any new orders
[2024-11-27 14:28] LABS: HIV (1&2) Antibody Rapid Non-Reactive
--- NOTE | 2024-11-27 14:40 | PC.NURSE ---
Endorsed pt. to Alvin Saenz.
[2024-11-27] MEDS: TRIMETHOPRIM/SULFA 160/800 DS TABLET 1 TAB PO (20:40)
[2024-11-27] MEDS: INSULIN GLARGINE (Lantus) 5 UNIT/0.05 ML (PER 5 UNITS) 14 UNIT SC (20:45)
[2024-11-28] VITALS (13 sets, daily range): BP systolic 95–126; BP diastolic 70–86; PULSE 66–91; RESP 16–19; TEMP 36.1–36.4; O2SAT 93–100; BMI 17.4
[2024-11-28 06:25] LABS: Basophils # (Auto) 0.0 Thou/mm3 (0.0-0.2); Basophils % (Auto) 0 % (0-2.5); Eosinophils # (Auto) 0.4 Thou/mm3 (0.0-0.5); Eosinophils % (Auto) 6 % (0-10); Hematocrit 32.4 % (36.0-46.0); Hemoglobin 9.9 g/dL (12.0-16.0); Immature Granulocytes Auto 0.01 Thou/mm3 (0.00-0.00); Lymphocytes # (Auto) 2.0 Thou/mm3 (1.0-4.8); Lymphocytes % (Auto) 31 % (10-50); Mean Corpuscular HGB Conc 30.6 g/dl (31.0-37.0); Mean Corpuscular Hemoglobin 24.4 pg (25.0-35.0); Mean Corpuscular Volume 80 fL (80-100); Monocytes # (Auto) 0.6 Thou/mm3 (0.0-0.8); Monocytes % (Auto) 9 % (0-12); Neutrophils # (Auto) 3.3 Thou/mm3 (1.8-7.7); Neutrophils % (Auto) 53 % (37-80); Nucleated Red Blood Cell # 0.00 Thou/mm3 (0.00-0.00); Nucleated Red Blood Cell % 0 /100 WBC (0); Platelet Count 356 Thou/mm3 (140-440); RDW Standard Deviation 46.1 fL (36.4-46.3); Red Blood Count 4.06 Miln/mm3 (4.00-5.20); White Blood Count 6.3 Thou/mm3 (3.6-11.0)
[2024-11-28 06:51] LABS: Alanine Aminotransferase 27 U/L (10-49); Albumin, Serum 3.5 gm/dL (3.5-5.0); Albumin/Globulin Ratio 1.5 (1.2-2.2); Alkaline Phosphatase 152 U/L (46-116); Anion Gap 8 (7-16); Aspartate Amino Transferase 29 U/L (0-34); BUN/Creatinine Ratio 13 Ratio (12-20); Bilirubin,Total 0.2 mg/dL (0.3-1.2); Blood Urea Nitrogen 8 mg/dL (9-23); Calcium 8.9 mg/dL (8.3-10.6); Calcium (Corrected) 9.3 mg/dL (8.5-10.1); Carbon Dioxide 24.3 mMol/L (20.0-31.0); Chloride 103 mMol/L (98-107); Creatinine (Component) 0.6 mg/dL (0.6-1.3); Estimated Creatinine Clearance 107.4 mL/min (>60); Globulin 2.3 gm/dL (2.3-3.5); Glucose 380 mg/dL (74-106); Magnesium 1.8 mg/dL (1.6-2.6); Osmolality,Calculated 284 (275-295); Phosphorous 4.2 mg/dL (2.4-5.1); Potassium 4.4 mMol/L (3.4-5.1); Sodium 135 mMol/L (136-145); Thyroid Stimulating Hormone 0.89 uIU/mL (0.55-4.78); Total Protein 5.8 gm/dL (5.7-8.2); eGFR > 60 See Note
[2024-11-28] MEDS: INSULIN LISPRO (AdmeLOG) 1 UNIT/0.01 ML UNIT SC ×3 (07:30→17:08)
[2024-11-28] MEDS: INSULIN LISPRO (AdmeLOG) 1 UNIT/0.01 ML UNIT 5 UNIT SC (07:31)
[2024-11-28] MEDS: THIAMINE 100 MG TABLET PO (08:34)
[2024-11-28] MEDS: TRIMETHOPRIM/SULFA 160/800 DS TABLET 1 TAB PO ×2 (08:34→20:15)
[2024-11-28] MEDS: FOLIC ACID 1 MG TABLET PO (08:34)
[2024-11-28] MEDS: INSULIN GLARGINE (Lantus) 5 UNIT/0.05 ML (PER 5 UNITS) 10 UNIT SC (09:27)
--- NOTE | 2024-11-28 10:10 | PC.SS ---
Tracey Mensah is a 24-year-old female admitted to [facility] for UTI. SS conducted bedside contact with the patient to complete initial assessment and to discuss discharge planning. Role and reason explained. Patient confirmed demographic information, pt lives with family. Patient identifies mother Elizabeth Mensah [phone] as her surrogate decision maker. Pt states she is able to complete all ADL?s independently. No need for DME. Pts PCP is [facility] in [place] unsure of name. Discharge options discussed and the pt wishes to return home.? Family will provide transportation upon DC. No further intervention required at this time, rn social work would be available to address any further concerns. DC Plan: Home Contact: KellyElizabeth Address: Confirmed on face sheet PCP: [facility] [place]
[2024-11-28] MEDS: INSULIN LISPRO (AdmeLOG) 1 UNIT/0.01 ML UNIT 8 UNIT SC ×2 (11:10→17:09)
--- NOTE | 2024-11-28 14:31 | PC.SS ---
Rounding: Pending blood sugar stabilization, Will DC home within 1-2 days. Pt will need AOD resouces upon DC.
[2024-11-28] MEDS: ACETAMINOPHEN 325 MG TABLET 650 MG PO (17:07)
[2024-11-28] MEDS: ONDANSETRON INJ 2 MG/ML INJ 2 ML 4 MG IVP (17:08)
--- NOTE | 2024-11-28 17:16 | PC.NURSE ---
RAC IV flushing with no issues, blood noted at site. Patient refuses for RN to change IV or redress IV site states that doctor said she will be leaving tomorrow.
--- NOTE | 2024-11-28 17:57 | ESPR_ITS ---
<Statement entered by Mili Otero MD - 11/28/24 21:07> I have reviewed the note and agree with the resident's assessment & plan with exceptions as below. I have personally reviewed labs, imaging, home meds/prior records, examined the patient, formulated and discussed management plan with the IM team. Pt examined at bedside. Pt continuing to improve. Adjusting insulin at this time as bedside glucose and AM glucose continues to be elevated. Pt likely to benefit from CGM and strict regimen for T2DM. Repeat hematology, and chemistry in AM. Pending C diff results at this time as diarrhea as currently resolved. Mili Otero, PGY-2 Internal Medicine Documentation for date of: 11/28/24 Subjective Subjective Interval history: Patient was evaluated bedside, appears fatigued. Patient states headache has resolved. She no longer feels nauseas and denies BMs today. She denies having chest pain, sob, fevers, or night sweats. Exam Vital Signs Temp Pulse Resp BP Pulse Ox O2 Del Method 97.3 F 80 18 126/86 H 97 Room Air 11/28/24 16:00 11/28/24 16:38 11/28/24 16:00 11/28/24 16:00 11/28/24 16:00 11/28/24 16:00 Narrative Exam PE: Gen: Thin, appears malnourished. NAD HEENT: NCAT, PERRLA, EOMI, anicteric conjunctivae. Moist mucous membranes. CVS: RRR, normal S1 and S2. No M/R/G. Resp: CTA B/L. No rhonchi, rales, crackles or wheezing. Abd: soft, non-distended. BS+ in all 4 quadrants. NTTP, NBS. MSK: Good ROM in BUE & BLE. No edema or rash. Neuro: CN II-XII grossly intact. Strength 5/5 in BUE & BLE. Alert and oriented x3. : 2 firm nonerythematous but tender bumps over mons pubis, dry, not weeping. No involvement of labia Psych: appropriate mood and affect. Objective Labs 11/29/24 05:44 11/29/24 05:44 Labs: Laboratory Results - last 24 hr 11/28/24 05:50 WBC 6.3 RBC 4.06 Hgb 9.9 L D Hct 32.4 L MCV 80 MCH 24.4 L MCHC 30.6 L RDW Std Deviation 46.1 Plt Count 356 D Neut % (Auto) 53 Lymph % (Auto) 31 [place] % (Auto) 9 Eos % (Auto) 6 Baso % (Auto) 0 Neut # (Auto) 3.3 Lymph # (Auto) 2.0 [place] # (Auto) 0.6 Eos # (Auto) 0.4 Baso # (Auto) 0.0 Immature Gran # (Auto) 0.01 H Absolute Nucleated RBC 0.00 Immature Gran % 0 Nucleated RBC % 0 Sodium 135 L Potassium 4.4 Chloride 103 Carbon Dioxide 24.3 Anion Gap 8 BUN 8 L Creatinine 0.6 Estim Creat Clear Calc 107.4 eGFR > 60 BUN/Creatinine Ratio 13 Glucose 380 H D Calculated Osmolality 284 Calcium 8.9 Corrected Calcium 9.3 Phosphorus 4.2 Magnesium 1.8 Total Bilirubin 0.2 L AST 29 ALT 27 Alkaline Phosphatase 152 H D Total Protein 5.8 Albumin 3.5 Globulin 2.3 Albumin/Globulin Ratio 1.5 TSH 0.89 ABG Interpretation ABG results: 11/27/24 11/27/24 11/27/24 03:03 06:25 10:20 ABG pH 7.47 H ABG pCO2 21 L ABG pO2 142 H ABG HCO3 16 L ABG O2 Saturation 99 H ABG Base Excess -6 L VBG pH 7.40 7.39 VBG pCO2 35 L 40 VBG pO2 149 H 41 D VBG Base Excess -3 -1 Quality Measures Quality Measures VTE prophylaxis Assessment & Plan Assessment Current Active Medications: Generic Name Dose Route Start Last Admin Trade Name Benq PRN Reason Stop Dose Admin Acetaminophen 650 mg 11/27/24 04:58 11/28/24 17:07 Acetaminophen 325 Mg Tablet PO 12/27/24 04:57 650 mg Q6H PRN Administration Fever >100.4 or pain Albuterol/Ipratropium 3 ml 11/27/24 04:58 Albuterol/Ipratropium (Duoneb) Rt Emerald 3 Ml Nebu INH 12/27/24 04:57 Q2HR PRN SHORTNESS OF BREATH OR WHEEZE Dextrose 25 ml 11/27/24 04:58 Dextrose 50%-Water Inj 50 Ml Syringe IV 12/27/24 04:57 Q15MIN PRN BG 50-70 responsive npo pt Dextrose 50 ml 11/27/24 04:58 Dextrose 50%-Water Inj 50 Ml Syringe IV 12/27/24 04:57 Q15MIN PRN BG <50 OR BG <70 & pt unresponsive Diazepam 2.5 mg 11/27/24 12:05 Diazepam Inj 5 Mg/Ml Vial 2 Ml IVP X1 PRN Breakthrough Agitation Diazepam 5 mg 11/28/24 07:50 Diazepam Inj 5 Mg/Ml Vial 2 Ml IVP 12/02/24 12:04 Q2HR PRN CIWA SCORE 16-19 Docusate Sodium 100 mg 11/27/24 04:58 Docusate Sod 100 Mg Capsule PO 12/27/24 04:57 QDAY PRN CONSTIPATION Protocol Enoxaparin Sodium 40 mg 11/27/24 09:00 11/28/24 08:34 Enoxaparin Sod Inj 40 Mg/0.4 Ml Syringe SC 12/11/24 08:59 Not Given QDAY YARIEL Folic Acid 1 mg 11/27/24 12:15 11/28/24 08:34 Folic Acid 1 Mg Tablet PO 12/27/24 12:14 1 mg QDAY YARIEL Administration Glucagon 1 mg 11/27/24 04:58 Glucagon Inj 1 Mg Vial IM Q15MIN PRN BG <70, and no IV access Ceftriaxone Sodium/Dextrose 1 gm in 50 mls @ 100 mls/hr 11/27/24 21:00 11/27/24 20:40 Rocephin/D5w 1gm Iv Premix IV 12/04/24 20:59 100 mls/hr [facility] Administration Insulin Glargine 20 unit 11/28/24 21:00 Insulin Glargine (Lantus) 5 Unit/0.05 Ml (Per 5 Units) IA 12/28/24 20:59 QPM YARIEL Insulin Human Lispro 0 unit 11/27/24 07:30 11/28/24 17:08 Insulin Lispro (Admelog) 1 Unit/0.01 Ml Unit SC 12/27/24 07:29 5 unit AC YARIEL Administration Protocol Insulin Human Lispro 8 unit 11/28/24 12:00 11/28/24 17:09 Insulin Lispro (Admelog) 1 Unit/0.01 Ml Unit SC 12/28/24 11:59 8 unit TIDWM YARIEL Administration Lorazepam 1 mg 11/27/24 12:05 Lorazepam 0.5 Mg Tablet PO 12/02/24 12:04 Q4HR PRN CIWA SCORE 7-11 Lorazepam 0.5 mg 11/27/24 12:05 Lorazepam 0.5 Mg Tablet PO 12/02/24 12:04 Q4HR PRN CIWA Score 2-6 Lorazepam 2 mg 11/27/24 12:05 Lorazepam 0.5 Mg Tablet PO 12/02/24 12:04 Q4HR PRN CIWA SCORE 12-15 Ondansetron HCl 4 mg 11/27/24 04:58 11/28/24 17:08 Ondansetron Inj 2 Mg/Ml Inj 2 Ml IVP 12/27/24 04:57 4 mg Q6H PRN Administration NAUSEA OR VOMITING Protocol Sennosides 1 tab 11/27/24 04:58 Senna Tablet PO 12/27/24 04:57 QDAY PRN constipation Protocol Thiamine HCl 100 mg 11/28/24 09:00 11/28/24 08:34 Thiamine 100 Mg Tablet PO 12/28/24 08:59 100 mg DAILY YARIEL Administration Protocol Trimethoprim/Sulfamethoxazole 1 tab 11/27/24 21:00 11/28/24 08:34 Trimethoprim/Sulfa 160/800 Ds Tablet PO 12/04/24 20:59 1 tab BID YARIEL Administration Plan Plan 24-year-old female with PMHx significant for poorly controlled insulin-dependent diabetes, asthma presents ED after being arrested for DUI, after having been found to have significantly elevated blood glucose in the field, admitted for mild DKA, respiratory alkalosis, and UTI. Plan for discharge once blood sugars are controlled Glucose: 380 11/28 #DKA resolved #Overcompensated respiratory alkalosis 2/2 anxiety #UTI, nonseptic Patient presents with high anion gap metabolic acidosis, AG 18, serum bicarb 15.8, well compensated with ABG showing pH 7.47, PCO2 21. Initially considered DKA, ICU was consulted, determined patient was not in DKA and did not need ICU admission. Lactic acid 3.8. UA showed 16 WBC, bacteria. Culture pending. Patient received 2 L bolus normal saline and 1 g Rocephin in the ED. Patient denies drug use or ASA overdose. She was reported to be very anxious when she was arrested. - Follow-up urine cultures - 20,000 Colonies/mL Mixed Monique, Possible Contamination - Trend lactate: 0.9, resolved - Rocephin 1 g IV daily (started 11/27) - IVF: LR at 75 mL/h x 1 L - VB.39, PCO2: 40, PO2: 41, VBG O2: 76, VBG base: -1 - Renal panel Q4h #Poorly controlled insulin-dependent diabetes #Hyperglycemia Patient has history of diabetes, for which she takes Lantus 14 daily and Humalog SSI, patient reports not seeing a PCP for close management. Hemoglobin A1c greater than 14% as of 11/27/24. Blood glucose on admission was 537, down trended to 330 with 5 units insulin IVP. - ISS - Lantus 10 units SQ daily --> Increased to 20 units (11/28), lispro 8 units - Blood sugar checks ACHS --> BS: 300 11/28 - Carb consistent diet - Recommend establishing outpatient follow-up for closer management of DM - D5 for PRN hypoglycemia #Diarrhea Acute #C.DIff r/o --> Only 1 BM since admission, DC Patient has history of diarrhea without blood or mucous, abdominal discomfort, nausua, Recent antibiotics use for genital ulcers? Plan: -stool culture and sensitivity, stool wbc, pcr c. diff -contact precautions- Cancel -monitor I/Os, replete fluids as needed #Cholecystitis vs Cholelithiasis vs gastroenteritis ALP is 210, but Barba sign negative. Patient does not appear jaundiced. Most likely gastroenteritis, patient has gastric pain and nausea. Plan: Consider abdominal ultrasound if symptoms worsening or jaundice appears. #Incomplete ABx administration for STD #Folliculitis vs STI Patient states the sores have resolved. Last sex activity was two months ago, patient did not finish her antibiotics. Per physical exam, two small lesions noted, no involvement of labias majora or minora. Dry, non weeping. Most likely folliculitis from shaving. Denies recent sexual activity Plan: Bactrim (TMP/SMX) FUP Chlamydia/GC/TV Syohillis HIV 1&2 AB screen #Malnutrition Patient appears underweight and emaciated on exam, BMI 17.5. Protein levels appropriate, serum total protein 7.2, albumin 4.4. - Dietary consulted #Polysubstance abuse Patient reports history of drug and alcohol use, although refuses to provide specifics. U tox positive for methamphetamines and weed, alcohol 23.4. Patient brought in after being arrested for DUI. -Provide counseling -Social service referral -Initiate CIWA protocol DVT prophylaxis: Lovenox GI prophylaxis: None Diet: Carb consistent Lines: Peripheral IV Code status: Full code Plan of care discussed with attending Dr. Singleton and resident parking supervisor Dr. Otero. Mart Troy MD PGY?1 Attending Provider Attestation/Addendum I have discussed and was present for the essential components of the history, physical examination, diagnosis, and treatment plan with the resident. I agree with the patient's care as documented by the resident and amended herein by me. Riley Singleton, DO. Although this document has been carefully reviewed, there may still be some phonetic and other typographical errors. These errors are purely grammatical due to imperfections in the software program and should not be construed in any way to compromise the substance of the patient's medical care during this visit.
--- NOTE | 2024-11-28 19:50 | PC.NURSE ---
Called to room, patient complaining about her IV line, states it's out, when check, at first, patient refused IV to be touch, explained that it is necessary to be check, did finally let her IV to be check, in place, flushing well, dressing changed. Dinner served at bedside. States of wanting to leave tonight, will inform MD.
--- NOTE | 2024-11-28 19:58 | PC.NURSE ---
Dr Dial, in did talked to patient. will stay tonight.
[2024-11-28] MEDS: INSULIN GLARGINE (Lantus) 5 UNIT/0.05 ML (PER 5 UNITS) 20 UNIT SC (20:15)
[2024-11-28] MEDS: cefTRIAXone/D5w 1gm IV premix 1 GM/50 ML BAG IV (20:17)
[2024-11-29] VITALS (10 sets, daily range): BP systolic 104–114; BP diastolic 65–78; PULSE 64–96; RESP 16–18; TEMP 36.2–36.7; O2SAT 94–98
[2024-11-29 06:11] LABS: Basophils # (Auto) 0.0 Thou/mm3 (0.0-0.2); Basophils % (Auto) 0 % (0-2.5); Eosinophils # (Auto) 0.3 Thou/mm3 (0.0-0.5); Eosinophils % (Auto) 5 % (0-10); Hematocrit 33.4 % (36.0-46.0); Hemoglobin 10.3 g/dL (12.0-16.0); Immature Granulocytes Auto 0.01 Thou/mm3 (0.00-0.00); Lymphocytes # (Auto) 2.1 Thou/mm3 (1.0-4.8); Lymphocytes % (Auto) 31 % (10-50); Mean Corpuscular HGB Conc 30.8 g/dl (31.0-37.0); Mean Corpuscular Hemoglobin 24.6 pg (25.0-35.0); Mean Corpuscular Volume 80 fL (80-100); Monocytes # (Auto) 0.8 Thou/mm3 (0.0-0.8); Monocytes % (Auto) 11 % (0-12); Neutrophils # (Auto) 3.6 Thou/mm3 (1.8-7.7); Neutrophils % (Auto) 53 % (37-80); Nucleated Red Blood Cell # 0.00 Thou/mm3 (0.00-0.00); Nucleated Red Blood Cell % 0 /100 WBC (0); Platelet Count 419 Thou/mm3 (140-440); RDW Standard Deviation 45.1 fL (36.4-46.3); Red Blood Count 4.19 Miln/mm3 (4.00-5.20); White Blood Count 6.8 Thou/mm3 (3.6-11.0)
[2024-11-29 06:33] LABS: Alanine Aminotransferase 28 U/L (10-49); Albumin, Serum 3.4 gm/dL (3.5-5.0); Albumin/Globulin Ratio 1.5 (1.2-2.2); Alkaline Phosphatase 148 U/L (46-116); Anion Gap 10 (7-16); Aspartate Amino Transferase 28 U/L (0-34); BUN/Creatinine Ratio 15 Ratio (12-20); Bilirubin,Total 0.2 mg/dL (0.3-1.2); Blood Urea Nitrogen 9 mg/dL (9-23); Calcium 8.3 mg/dL (8.3-10.6); Calcium (Corrected) 8.8 mg/dL (8.5-10.1); Carbon Dioxide 23.5 mMol/L (20.0-31.0); Chloride 103 mMol/L (98-107); Creatinine (Component) 0.6 mg/dL (0.6-1.3); Estimated Creatinine Clearance 107.4 mL/min (>60); Globulin 2.2 gm/dL (2.3-3.5); Glucose 304 mg/dL (74-106); Magnesium 1.4 mg/dL (1.6-2.6); Osmolality,Calculated 281 (275-295); Phosphorous 4.3 mg/dL (2.4-5.1); Potassium 4.1 mMol/L (3.4-5.1); Sodium 136 mMol/L (136-145); Total Protein 5.6 gm/dL (5.7-8.2); eGFR > 60 See Note
[2024-11-29] MEDS: INSULIN LISPRO (AdmeLOG) 1 UNIT/0.01 ML UNIT 8 UNIT SC (07:55)
[2024-11-29] MEDS: INSULIN LISPRO (AdmeLOG) 1 UNIT/0.01 ML UNIT SC ×2 (07:56→11:43)
[2024-11-29] MEDS: FOLIC ACID 1 MG TABLET PO (08:49)
[2024-11-29] MEDS: THIAMINE 100 MG TABLET PO (08:49)
[2024-11-29] MEDS: ENOXAPARIN SOD INJ 40 MG/0.4 ML SYRINGE SC (08:50)
[2024-11-29] MEDS: TRIMETHOPRIM/SULFA 160/800 DS TABLET 1 TAB PO ×2 (08:50→20:19)
[2024-11-29] MEDS: Magnesium Sulfate 2 GM Ivpb 2 GM/50 ML BAG IV ×2 (08:59→12:27)
[2024-11-29] MEDS: INSULIN GLARGINE (Lantus) 5 UNIT/0.05 ML (PER 5 UNITS) 7 UNIT SC (09:17)
--- NOTE | 2024-11-29 11:16 | XR_ITS ---
Examination: Abdomen sonogram, complete Date and time of exam: November 29, 2024 1213 hours INDICATIONS: Right upper abdominal pain and pressure beginning 2 days ago. Technique: Multiple real-time grayscale transabdominal sonographic images of the abdomen have been obtained. Findings: Normal gallbladder. Normal common bile duct 0.3 cm Pancreatic head 2.8 cm Aorta not enlarged. Liver 17.1 cm smooth contour Normal hepatopedal portal venous flow Patent IVC Right kidney 11.2 cm cortex 1.4 cm Left kidney 11.4 cm cortex 1.8 cm No hydronephrosis Spleen 9.9 cm IMPRESSION: Normal gallbladder Hepatomegaly no focal liver lesions
[2024-11-29] MEDS: INSULIN LISPRO (AdmeLOG) 1 UNIT/0.01 ML UNIT 10 UNIT SC (11:44)
--- NOTE | 2024-11-29 13:36 | ESPR_ITS ---
<Statement entered by Mili Otero MD - 11/30/24 15:17> I have reviewed the note and agree with the resident's assessment & plan with exceptions as below. I have personally reviewed labs, imaging, home meds/prior records, examined the patient, formulated and discussed management plan with the IM team. Patient examined at bedside today. Patient continuing to have hyperglycemia in the 300s at bedside in morning as well. Will give additional insulin tonight 27 units of Lantus, will increase lispro 10 units scheduled along with sliding scale. I have sent over CGM, Dexcom to patient's pharmacy. Anticipate discharge within the next 24 to 48 hours as long as sugars continue to improve. Repeat hematology and chemistry in the a.m. Continue with Accu-Cheks ACHS. Mili Otero, PGY-2 Internal Medicine Documentation for date of: 11/29/24 Subjective Subjective Interval history: Patient is breathing fine on room air. She confirms that she is a type 1 diabetic. She reports improved fatigue, a mild headache, improved nausea. She denies any vomiting or diarrhea. She confirms no BMs today or yesterday. She understands that we are planning on getting her blood sugars under control before discharge. Glucose was 300 at AM check 180 at meal time and then became hypoglycemic, juicce was provided and sugars rebounded. Exam Vital Signs Temp Pulse Resp BP Pulse Ox O2 Del Method 97.3 F 82 18 105/68 96 Room Air 11/29/24 08:00 11/29/24 11:54 11/29/24 08:00 11/29/24 08:00 11/29/24 08:00 11/29/24 08:00 Narrative Exam PE: Gen: Thin, appears malnourished. NAD HEENT: NCAT, PERRLA, EOMI, anicteric conjunctivae. Moist mucous membranes. CVS: RRR, normal S1 and S2. No M/R/G. Resp: CTA B/L. No rhonchi, rales, crackles or wheezing. Abd: soft, non-distended. BS+ in all 4 quadrants. TTP, NBS. MSK: Good ROM in BUE & BLE. No edema or rash. Neuro: CN II-XII grossly intact. Strength 5/5 in BUE & BLE. Alert and oriented x3. : 2 firm nonerythematous but tender bumps over mons pubis, dry, not weeping. No involvement of labia Psych: appropriate mood and affect. Objective Labs 11/30/24 08:50 11/30/24 08:50 Labs: Laboratory Results - last 24 hr 11/29/24 05:44 WBC 6.8 RBC 4.19 Hgb 10.3 L Hct 33.4 L MCV 80 MCH 24.6 L MCHC 30.8 L RDW Std Deviation 45.1 Plt Count 419 D Neut % (Auto) 53 Lymph % (Auto) 31 [place] % (Auto) 11 Eos % (Auto) 5 Baso % (Auto) 0 Neut # (Auto) 3.6 Lymph # (Auto) 2.1 [place] # (Auto) 0.8 Eos # (Auto) 0.3 Baso # (Auto) 0.0 Immature Gran # (Auto) 0.01 H Absolute Nucleated RBC 0.00 Immature Gran % 0 Nucleated RBC % 0 Sodium 136 Potassium 4.1 Chloride 103 Carbon Dioxide 23.5 Anion Gap 10 BUN 9 Creatinine 0.6 Estim Creat Clear Calc 107.4 eGFR > 60 BUN/Creatinine Ratio 15 Glucose 304 H D Calculated Osmolality 281 Calcium 8.3 Corrected Calcium 8.8 Phosphorus 4.3 Magnesium 1.4 L Total Bilirubin 0.2 L AST 28 ALT 28 Alkaline Phosphatase 148 H Total Protein 5.6 L Albumin 3.4 L Globulin 2.2 L Albumin/Globulin Ratio 1.5 ABG Interpretation ABG results: 11/27/24 11/27/24 11/27/24 03:03 06:25 10:20 ABG pH 7.47 H ABG pCO2 21 L ABG pO2 142 H ABG HCO3 16 L ABG O2 Saturation 99 H ABG Base Excess -6 L VBG pH 7.40 7.39 VBG pCO2 35 L 40 VBG pO2 149 H 41 D VBG Base Excess -3 -1 Quality Measures Quality Measures VTE prophylaxis Assessment & Plan Assessment Current Active Medications: Generic Name Dose Route Start Last Admin Trade Name Freq PRN Reason Stop Dose Admin Acetaminophen 650 mg 11/27/24 04:58 11/28/24 17:07 Acetaminophen 325 Mg Tablet PO 12/27/24 04:57 650 mg Q6H PRN Administration Fever >100.4 or pain Albuterol/Ipratropium 3 ml 11/27/24 04:58 Albuterol/Ipratropium (Duoneb) Rt Emerald 3 Ml Nebu INH 12/27/24 04:57 Q2HR PRN SHORTNESS OF BREATH OR WHEEZE Dextrose 25 ml 11/27/24 04:58 Dextrose 50%-Water Inj 50 Ml Syringe IV 12/27/24 04:57 Q15MIN PRN BG 50-70 responsive npo pt Dextrose 50 ml 11/27/24 04:58 Dextrose 50%-Water Inj 50 Ml Syringe IV 12/27/24 04:57 Q15MIN PRN BG <50 OR BG <70 & pt unresponsive Diazepam 2.5 mg 11/27/24 12:05 Diazepam Inj 5 Mg/Ml Vial 2 Ml IVP X1 PRN Breakthrough Agitation Diazepam 5 mg 11/28/24 07:50 Diazepam Inj 5 Mg/Ml Vial 2 Ml IVP 12/02/24 12:04 Q2HR PRN CIWA SCORE 16-19 Docusate Sodium 100 mg 11/27/24 04:58 Docusate Sod 100 Mg Capsule PO 12/27/24 04:57 QDAY PRN CONSTIPATION Protocol Enoxaparin Sodium 40 mg 11/27/24 09:00 11/29/24 08:50 Enoxaparin Sod Inj 40 Mg/0.4 Ml Syringe SC 12/11/24 08:59 40 mg QDAY YARIEL Administration Folic Acid 1 mg 11/27/24 12:15 11/29/24 08:49 Folic Acid 1 Mg Tablet PO 12/27/24 12:14 1 mg QDAY YARIEL Administration Glucagon 1 mg 11/27/24 04:58 Glucagon Inj 1 Mg Vial IM Q15MIN PRN BG <70, and no IV access Ceftriaxone Sodium/Dextrose 1 gm in 50 mls @ 100 mls/hr 11/27/24 21:00 11/28/24 20:17 Rocephin/D5w 1gm Iv Premix IV 12/04/24 20:59 100 mls/hr 2100 YARIEL Administration Insulin Glargine 27 unit 11/30/24 21:00 Insulin Glargine (Lantus) 5 Unit/0.05 Ml (Per 5 Units) SC 12/30/24 20:59 QPM YARIEL Insulin Human Lispro 0 unit 11/28/24 18:49 11/29/24 11:43 Insulin Lispro (Admelog) 1 Unit/0.01 Ml Unit SC 12/27/24 07:29 3 unit AC YARIEL Administration Protocol Insulin Human Lispro 10 unit 11/29/24 12:00 11/29/24 11:44 Insulin Lispro (Admelog) 1 Unit/0.01 Ml Unit SC 12/29/24 11:59 10 unit TIDWM YARIEL Administration Lorazepam 1 mg 11/27/24 12:05 Lorazepam 0.5 Mg Tablet PO 12/02/24 12:04 Q4HR PRN CIWA SCORE 7-11 Lorazepam 0.5 mg 11/27/24 12:05 Lorazepam 0.5 Mg Tablet PO 12/02/24 12:04 Q4HR PRN CIWA Score 2-6 Lorazepam 2 mg 11/27/24 12:05 Lorazepam 0.5 Mg Tablet PO 12/02/24 12:04 Q4HR PRN CIWA SCORE 12-15 Ondansetron HCl 4 mg 11/27/24 04:58 11/28/24 17:08 Ondansetron Inj 2 Mg/Ml Inj 2 Ml IVP 12/27/24 04:57 4 mg Q6H PRN Administration NAUSEA OR VOMITING Protocol Sennosides 1 tab 11/27/24 04:58 Senna Tablet PO 12/27/24 04:57 QDAY PRN constipation Protocol Thiamine HCl 100 mg 11/28/24 09:00 11/29/24 08:49 Thiamine 100 Mg Tablet PO 12/28/24 08:59 100 mg DAILY YARIEL Administration Protocol Trimethoprim/Sulfamethoxazole 1 tab 11/27/24 21:00 11/29/24 08:50 Trimethoprim/Sulfa 160/800 Ds Tablet PO 12/04/24 20:59 1 tab BID YARIEL Administration Plan Plan 24-year-old female with PMHx significant for poorly controlled insulin-dependent diabetes, asthma presents ED after being arrested for DUI, after having been found to have significantly elevated blood glucose in the field, admitted for mild DKA, respiratory alkalosis, and UTI. Plan for discharge once blood sugars are controlled AM Glucose: 304, 11/29 #DKA resolved #Overcompensated respiratory alkalosis 2/2 anxiety #UTI, nonseptic Patient presents with high anion gap metabolic acidosis, AG 18, serum bicarb 15.8, well compensated with ABG showing pH 7.47, PCO2 21. Initially considered DKA, ICU was consulted, determined patient was not in DKA and did not need ICU admission. Lactic acid 3.8. UA showed 16 WBC, bacteria. Urine cultue showed possible contamination. Patient received 2 L bolus normal saline and 1 g Rocephin in the ED. Patient denies drug use or ASA overdose. She was reported to be very anxious when she was arrested. - Follow-up urine cultures - 20,000 Colonies/mL Mixed Monique, Possible Contamination - Trend lactate: 0.9, resolved - Rocephin 1 g IV daily (started 11/27) - IVF: LR at 75 mL/h x 1 L - VB.39, PCO2: 40, PO2: 41, VBG O2: 76, VBG base: -1 - Renal panel Q4h #Poorly controlled insulin-dependent diabetes #Hyperglycemia Patient has history of diabetes, for which she takes Lantus 14 daily and Humalog SSI, patient reports not seeing a PCP for close management. Hemoglobin A1c greater than 14% as of 11/27/24. Blood glucose on admission was 537, down trended to 330 with 5 units insulin IVP. - ISS - Lantus 10 units SQ daily --> Increased to 20 units (11/28)--> 27 units (11/29), lispro 8 units --> 10 units(11/29) - Blood sugar checks ACHS --> AM Glucose: 300 11/28, Bedside glucose: 183, - Carb consistent diet - Recommend establishing outpatient follow-up for closer management of DM - D5 for PRN hypoglycemia -Dexcom #Diarrhea Acute #C.DIff r/o --> Only 1 BM since admission, DC Patient has history of diarrhea without blood or mucous, abdominal discomfort, nausua Recent antibiotics use for genital ulcers? Plan: -stool culture and sensitivity, stool wbc, pcr c. diff -contact precautions- Canceled -monitor I/Os, replete fluids as needed #gastroenteritis Cholecystitis, r/o Cholelithiasis r/o ALP is 210, but Barba sign negative. Patient does not appear jaundiced. Most likely gastroenteritis, patient has gastric pain and nausea. Most likely gastroenteritis abd US shows no cholelithiasis or cystic duct obstruction Plan: Abdominal US: Normal gallbladder. Hepatomegaly no focal liver lesions #Incomplete ABx administration for STD #Folliculitis vs STI Patient states the sores have resolved. Last sex activity was two months ago, patient did not finish her antibiotics. Per physical exam, two small lesions noted, no involvement of labias majora or minora. Dry, non weeping. Most likely folliculitis from shaving. Denies recent sexual activity Plan: Bactrim (TMP/SMX) FUP Chlamydia/GC/TV Syohillis: Negative HIV 1&2 AB screen: Negative #Malnutrition Patient appears underweight and emaciated on exam, BMI 17.5. Protein levels appropriate, serum total protein 7.2, albumin 4.4. - Dietary consulted #Polysubstance abuse Patient reports history of drug and alcohol use, although refuses to provide specifics. U tox positive for methamphetamines and weed, alcohol 23.4. Patient brought in after being arrested for DUI. -Provide counseling -Social service referral -Initiate CIWA protocol: CIWA: 1, 11/29 Health Maintenance DVT prophylaxis: Lovenox GI prophylaxis: None Diet: Carb consistent Lines: Peripheral IV Code status: Full code Plan of care discussed with attending Dr. Singleton and resident airport skilled maintenance supervisor Dr. Otero. Mart Troy MD PGY?1 Attending Provider Attestation/Addendum I have discussed and was present for the essential components of the history, physical examination, diagnosis, and treatment plan with the resident. I agree with the patient's care as documented by the resident and amended herein by me. Riley Singleton DO. Although this document has been carefully reviewed, there may still be some phonetic and other typographical errors. These errors are purely grammatical due to imperfections in the software program and should not be construed in any way to compromise the substance of the patient's medical care during this visit. Patient seen and evaluated this AM. No acute events overnight, patient does want a go home however later this afternoon, the patient did become hypoglycemic in which she readily covered with some juice. Patient presently on ceftriaxone for UTI, Lantus 27 units nightly, lispro 8 units 3 times daily AC and sliding scale. We will titrate insulin likely down, titration is always difficult in type I diabetics. Patient was having some epigastric and right upper quadrant pain today hence we did a right upper quadrant ultrasound which demonstrated hepatomegaly. Will continue to monitor closely, patient to be discharged home once blood glucose has been better controlled
--- NOTE | 2024-11-29 15:55 | PC.SS ---
Follow up note: Patient pending liver ultrasound. Blood sugars still need to be controlled. Patient will need to be referred to bioengineer. Patient will need to follow up with p.c.p. for referral. D/c 1-2 days.
[2024-11-29] MEDS: cefTRIAXone/D5w 1gm IV premix 1 GM/50 ML BAG IV (20:19)
[2024-11-29] MEDS: ONDANSETRON INJ 2 MG/ML INJ 2 ML 4 MG IVP (20:24)
[2024-11-30] VITALS (7 sets, daily range): BP systolic 100–111; BP diastolic 59–77; PULSE 72–94; RESP 16–18; TEMP 36.1–36.7; O2SAT 95–100
[2024-11-30] MEDS: INSULIN LISPRO (AdmeLOG) 1 UNIT/0.01 ML UNIT SC ×2 (07:40→11:26)
[2024-11-30] MEDS: INSULIN LISPRO (AdmeLOG) 1 UNIT/0.01 ML UNIT 5 UNIT SC ×2 (07:40→11:27)
[2024-11-30] MEDS: FOLIC ACID 1 MG TABLET PO (09:10)
[2024-11-30] MEDS: TRIMETHOPRIM/SULFA 160/800 DS TABLET 1 TAB PO (09:10)
[2024-11-30] MEDS: THIAMINE 100 MG TABLET PO (09:10)
[2024-11-30 09:51] LABS: Basophils # (Auto) 0.0 Thou/mm3 (0.0-0.2); Basophils % (Auto) 1 % (0-2.5); Eosinophils # (Auto) 0.2 Thou/mm3 (0.0-0.5); Eosinophils % (Auto) 4 % (0-10); Hematocrit 37.2 % (36.0-46.0); Hemoglobin 11.5 g/dL (12.0-16.0); Immature Granulocytes Auto 0.02 Thou/mm3 (0.00-0.00); Lymphocytes # (Auto) 1.5 Thou/mm3 (1.0-4.8); Lymphocytes % (Auto) 26 % (10-50); Mean Corpuscular HGB Conc 30.9 g/dl (31.0-37.0); Mean Corpuscular Hemoglobin 24.6 pg (25.0-35.0); Mean Corpuscular Volume 80 fL (80-100); Monocytes # (Auto) 0.5 Thou/mm3 (0.0-0.8); Monocytes % (Auto) 9 % (0-12); Neutrophils # (Auto) 3.4 Thou/mm3 (1.8-7.7); Neutrophils % (Auto) 60 % (37-80); Nucleated Red Blood Cell # 0.00 Thou/mm3 (0.00-0.00); Nucleated Red Blood Cell % 0 /100 WBC (0); Platelet Count 460 Thou/mm3 (140-440); RDW Standard Deviation 45.1 fL (36.4-46.3); Red Blood Count 4.68 Miln/mm3 (4.00-5.20); White Blood Count 5.6 Thou/mm3 (3.6-11.0)
[2024-11-30 10:11] LABS: Alanine Aminotransferase 36 U/L (10-49); Albumin, Serum 4.1 gm/dL (3.5-5.0); Anion Gap 11 (7-16); Aspartate Amino Transferase 29 U/L (0-34); BUN/Creatinine Ratio 13 Ratio (12-20); Bilirubin,Total 0.2 mg/dL (0.3-1.2); Blood Urea Nitrogen 9 mg/dL (9-23); Calcium 9.4 mg/dL (8.3-10.6); Calcium (Corrected) 9.4 mg/dL (8.5-10.1); Carbon Dioxide 24.6 mMol/L (20.0-31.0); Chloride 103 mMol/L (98-107); Creatinine (Component) 0.7 mg/dL (0.6-1.3); Estimated Creatinine Clearance 92.1 mL/min (>60); Globulin 2.7 gm/dL (2.3-3.5); Glucose 192 mg/dL (74-106); Magnesium 1.8 mg/dL (1.6-2.6); Osmolality,Calculated 281 (275-295); Phosphorous 3.1 mg/dL (2.4-5.1); Potassium 3.8 mMol/L (3.4-5.1); Sodium 139 mMol/L (136-145); Total Protein 6.8 gm/dL (5.7-8.2); eGFR > 60 See Note
[2024-11-30 10:12] LABS: Albumin/Globulin Ratio 1.5 (1.2-2.2); Alkaline Phosphatase 154 U/L (46-116)
--- NOTE | 2024-11-30 13:53 | PC.NURSE ---
Pt stated felt like blood sugar was low, bedside blood sugar checked results 126. Requested and given juice.
--- NOTE | 2024-11-30 15:19 | PC.NURSE ---
Patient requested to speak to MD regarding D/C plans. Dr. Troy contacted and explained possible late discharge tonight or discharge plan for tomorrow. Explained to patient and patient stated she could manage blood sugar checks at home and was ready to leave now. Dr. Troy contacted and came to speak to patient, risks made known. Patient set up own transportation, IV D/C prior to leaving facility AMA.
--- NOTE | 2024-11-30 19:16 | EVENTNT_ITS ---
<Statement entered by Fadia Triana MD - 11/30/24 19:49> I spoke with the patient personally, risk and benefits were explained, all her questions answered. Patient elected to leave the hospital AGAINST MEDICAL ADVICE. Patient was informed that she is welcome to come back to the ED in case of worsening of her symptoms or in case of any medical emergency. Patient was encouraged to see her PCP and to book an appointment with an medical insurance clerk [place] as she may benefit from a insulin pump. - Patient's plan and care discussed with my attending, Dr. Areli Triana MD Internal Medicine PGY-3 Documentation for date of: 11/30/24 Event Note Event Note: On 11/30 about 2:00pm patient informed nursing staff that she would like to leave AMA. The patient was informed that while her blood sugars had improved that she was still uncontrolled and experiencing rapid fluctuations. The risks of uncontrolled diabetes, hyperglycemia and hypoglycemia, as well as high levels of alcohol consumption were explained to her with risks such as but not limited to , kidney disease, blindness, and repeat hospitalizations were understood, accepted and reasoned through. The patient explained that she wanted to be back home with her two children. Her current regiment of insulin given to her at the hospital was explained and the patient was highly encouraged to get connected to a PCP and an medical insurance clerk. Also substance use counseling was done and r esources were given to the patient. Patient was seen and plan discussed with attending Dr. Singleton and supervising residents Dr. Otero and Dr. Triana. Note written by Mart Troy MD PGY-1
== END 2024-11-30 15:26 | disposition left against medical advice (07) | DRG 420 ==
LOC: SERX 04:26 → SERHOLD 05:12 → S3NX 09:48
PROVIDERS: Admitting Provider Student in an Organized Health Care Education/Training Program; Emergency Provider Emergency Medicine; Visit Provider Student in an Organized Health Care Education/Training Program
DX: E10.65 Type 1 diabetes mellitus with hyperglycemia (principal); Z79.4 Long term (current) use of insulin; J45.909 Unspecified asthma, uncomplicated; F17.290 Nicotine dependence, other tobacco product, uncomplicated; Y90.1 Blood alcohol level of 20-39 mg/100 ml; E46 Unspecified protein-calorie malnutrition; N39.0 Urinary tract infection, site not specified; Z65.3 Problems related to other legal circumstances; E87.20 Acidosis, unspecified; E87.3 Alkalosis; F41.9 Anxiety disorder, unspecified; L73.9 Follicular disorder, unspecified; K52.9 Noninfective gastroenteritis and colitis, unspecified; F19.10 Other psychoactive substance abuse, uncomplicated; F10.10 Alcohol abuse, uncomplicated; E10.649 Type 1 diabetes mellitus with hypoglycemia without coma; F15.10 Other stimulant abuse, uncomplicated; F12.10 Cannabis abuse, uncomplicated; Z68.1 Body mass index [BMI] 19.9 or less, adult
CPT/HCPCS: 36415; 36600; 76700; 80053; 80069; 80307; 80320; 81001; 82010; 82150; 82248; 82803; 83036; 83605; 83735; 84100; 84145; 84439; 84443; 84484; 84703; 85025; 86703; 86780; 87086; 87400; 87491; 87493; 87591; 87661; 87811; 93005; 93225; 94664; 96361; 96365; 96375; 96376; 99284; J0696; J1650; J1815; J2405; J3411; J3475; J7030; J7120; A9270; G0480